=== PATIENT | male | born 1945 | race Caucasian/White ===

== ENCOUNTER 2023-01-09 08:01 | Outpatient (CLI) | payer MEDICARE, OTHER | END 2023-01-09 08:02 | disposition home or self-care (01) | LOC: CSHCT 08:01 | PROVIDERS: ATTEND Psychiatry & Neurology Neurology | DX: R41.3 Other amnesia (principal); I51.7 Cardiomegaly; I51.9 Heart disease, unspecified; I67.9 Cerebrovascular disease, unspecified; I70.90 Unspecified atherosclerosis; I66.22 Occlusion and stenosis of left posterior cerebral artery; Z86.73 Personal history of transient ischemic attack (TIA), and cerebral infarction without residual deficits | CPT/HCPCS: 70496; 70498; 70551; 82565; 93306 ==